=== PATIENT | male | born 1955 | race Caucasian/White ===

== ENCOUNTER 2017-11-23 08:03 | Outpatient (CLI) | payer OTHER ==
[~2017-11-23 08:03] MED LIST: TENORMIN25 MG
== END 2017-11-23 13:11 | disposition home or self-care (01) ==
LOC: LAB 08:03
DX: E78.5 Hyperlipidemia, unspecified (principal); N40.0 Benign prostatic hyperplasia without lower urinary tract symptoms

== ENCOUNTER 2018-08-23 07:21 | Outpatient (CLI) | payer OTHER | END 2018-08-23 07:26 | disposition home or self-care (01) | LOC: LAB 07:21 | DX: E03.8 Other specified hypothyroidism (principal); E78.49 Other hyperlipidemia; R73.01 Impaired fasting glucose; E04.1 Nontoxic single thyroid nodule ==

== ENCOUNTER → 2018-11-15 07:15 | Outpatient (CLI) | payer OTHER | END | disposition home or self-care (01) | LOC: LAB 07:15 | DX: E78.49 Other hyperlipidemia (principal); N40.0 Benign prostatic hyperplasia without lower urinary tract symptoms; E55.9 Vitamin D deficiency, unspecified; E88.81 Metabolic syndrome and other insulin resistance ==

== ENCOUNTER → 2019-01-27 16:56 | Outpatient (CLI) | payer OTHER | END | disposition home or self-care (01) | LOC: RAD 16:56 | DX: M54.2 Cervicalgia (principal); M54.6 Pain in thoracic spine; M54.5 Low back pain ==

== ENCOUNTER 2019-06-30 11:34 | Outpatient (CLI) | payer OTHER | END 2019-06-30 11:46 | disposition home or self-care (01) | LOC: LAB 11:34 | DX: R31.0 Gross hematuria (principal) ==

== ENCOUNTER 2019-06-30 12:12 | Outpatient (CLI) | payer OTHER | END 2019-06-30 12:13 | disposition home or self-care (01) | LOC: SONOGRAMA 12:12 → MAMO-SONO 13:15 | DX: R31.0 Gross hematuria (principal) ==

== ENCOUNTER 2019-08-08 07:15 | Outpatient (CLI) | payer OTHER | END 2019-08-08 08:09 | disposition home or self-care (01) | LOC: LAB 07:15 | DX: R31.0 Gross hematuria (principal); N40.0 Benign prostatic hyperplasia without lower urinary tract symptoms ==

== ENCOUNTER 2019-08-11 07:56 | Outpatient (CLI) | payer OTHER | END 2019-08-11 08:05 | disposition home or self-care (01) | LOC: TOM 07:56 | DX: R31.0 Gross hematuria (principal) ==

== ENCOUNTER 2019-11-07 07:59 | Outpatient (CLI) | payer OTHER | END 2019-11-07 08:09 | disposition home or self-care (01) | LOC: LAB 07:59 | DX: I10 Essential (primary) hypertension (principal); R31.21 Asymptomatic microscopic hematuria ==

== ENCOUNTER → 2020-11-04 06:16 | Outpatient (CLI) | payer OTHER | END | disposition home or self-care (01) | LOC: LAB 06:16 → RAD 06:16 | PROVIDERS: ATTEND Urology | DX: R31.21 Asymptomatic microscopic hematuria (principal); I10 Essential (primary) hypertension ==

== ENCOUNTER → 2020-11-12 07:14 | Outpatient (CLI) | payer OTHER | END | disposition home or self-care (01) | LOC: LAB 07:14 | PROVIDERS: ATTEND Internal Medicine Cardiovascular Disease | DX: I10 Essential (primary) hypertension (principal) ==

== ENCOUNTER 2021-08-12 07:58 | Outpatient (CLI) | payer OTHER | END 2021-08-12 08:03 | disposition home or self-care (01) | LOC: LAB 07:58 | PROVIDERS: ATTEND Internal Medicine Cardiovascular Disease | DX: N40.0 Benign prostatic hyperplasia without lower urinary tract symptoms (principal); I10 Essential (primary) hypertension ==

== ENCOUNTER 2021-11-18 07:09 | Outpatient (CLI) | payer OTHER | END 2021-11-18 07:16 | disposition home or self-care (01) | LOC: LAB 07:09 | PROVIDERS: ATTEND Urology | DX: N40.0 Benign prostatic hyperplasia without lower urinary tract symptoms (principal) ==

== ENCOUNTER 2022-04-07 09:57 | Outpatient (CLI) | payer OTHER | END 2022-04-07 10:08 | disposition home or self-care (01) | LOC: LAB 09:57 | PROVIDERS: ATTEND Urology | DX: N39.0 Urinary tract infection, site not specified (principal) ==

== ENCOUNTER 2022-09-17 07:47 | Outpatient (CLI) | payer OTHER | END 2022-09-17 07:59 | disposition home or self-care (01) | LOC: SONOGRAMA 07:47 | PROVIDERS: ATTEND Urology | DX: R33.9 Retention of urine, unspecified (principal) ==

== ENCOUNTER → 2022-11-20 | Outpatient (CLI) | payer OTHER | END | disposition home or self-care (01) | LOC: LAB 06:25 | PROVIDERS: ATTEND Urology | DX: N40.1 Benign prostatic hyperplasia with lower urinary tract symptoms (principal); R33.9 Retention of urine, unspecified ==

== ENCOUNTER 2023-09-09 07:43 | Outpatient (CLI) | payer OTHER | END 2023-09-09 07:47 | disposition home or self-care (01) | LOC: RAD 07:43 | DX: I70.0 Atherosclerosis of aorta (principal) ==

== ENCOUNTER 2023-09-11 08:26 | Outpatient (CLI) | payer OTHER | END 2023-09-11 08:31 | disposition home or self-care (01) | LOC: SONOGRAMA 08:26 | DX: N40.1 Benign prostatic hyperplasia with lower urinary tract symptoms (principal) ==

== ENCOUNTER 2023-09-11 08:36 | Outpatient (CLI) | payer OTHER ==
[2023-09-13 09:08] LABS: HSV I IGG TYPE SPECIFIC 33.9 index (0.00-0.90)
== END 2023-09-11 08:39 | disposition home or self-care (01) ==
LOC: LAB 08:36
DX: A60.9 Anogenital herpesviral infection, unspecified (principal)

== ENCOUNTER → 2024-05-11 06:54 | Outpatient (CLI) | payer OTHER ==
[2024-05-11 10:11] LABS: PH,URINE 5.5 (5.0-8.0); URINE APPEARANCE Clear; URINE BILIRRUBIN Negative (NEGATIVE); URINE BLOOD Negative; URINE COLOR Yellow; URINE GLUCOSE Negative (NEGATIVE); URINE KETONE Negative (NEGATIVE); URINE LEUKOCYTE Small; URINE NITRATE Negative; URINE PROTEIN Negative (NEGATIVE); URINE UROBILINOGEN 0.2 E.U./dl
[2024-05-11 10:12] LABS: URINE EPITHELIAL CELLS 1.6 uL (0.0-38.8); URINE RBC 4.4 uL (0.0-20.8); URINE WBC 21.7 uL (0.0-23.2)
== END | disposition home or self-care (01) ==
LOC: LAB 06:54
DX: E11.65 Type 2 diabetes mellitus with hyperglycemia (principal); R30.0 Dysuria

== ENCOUNTER 2024-05-19 07:44 | Outpatient (CLI) | payer OTHER | END 2024-05-19 07:45 | disposition home or self-care (01) | LOC: NUCLEAR 07:44 | DX: I73.9 Peripheral vascular disease, unspecified (principal); I87.2 Venous insufficiency (chronic) (peripheral) ==

== ENCOUNTER 2024-08-31 15:02 | Outpatient (CLI) | payer OTHER | END 2024-08-31 15:07 | disposition home or self-care (01) | LOC: RAD 15:02 | PROVIDERS: ATTEND Internal Medicine Cardiovascular Disease | DX: I10 Essential (primary) hypertension (principal) ==